=== PATIENT | female | born 1990 ===

== ENCOUNTER 2017-04-04 12:17 | Emergency (ER) | payer BC ==
[2017-04-04] MEDS ORDERED: Sodium Chloride 0.9% 10 ML Syringe FLUSH PRN (12:43)
[2017-04-04] MEDS ORDERED: Ondansetron 4 MG/2 ML SDV IVPUSH ONE (12:43)
[2017-04-04] MEDS ORDERED: HYDROmorphone 2 MG/ML Syringe IVPUSH ONE (12:43)
[2017-04-04] MEDS ORDERED: Sodium Chloride 0.9% 1,000 ML IV ONE (12:43)
[2017-04-04] MEDS ORDERED: Sodium Chloride 0.9% 2.5 ML Syringe FLUSH PRN (12:43)
--- NOTE | 2017-04-04 12:45 | EDM.PDOC ---
ED HPI GENERAL MEDICAL PROBLEM - General Chief Complaint: ENT Problem Stated Complaint: TOOTH PAIN Time Seen by Provider: 04/04/17 12:24 - History of Present Illness INITIAL COMMENTS - FREE TEXT/NARRATIVE: HISTORY AND PHYSICAL: History of present illness: The patient is a 27-year-old female with a history of sinusitis in the past presents after she underwent wisdom tooth removal x4 on March [address] Wyatt. Patient states she was told by the maxillofacial surgeon that the 2 wisdom teeth on the right side were very deep and the bottom was close to the nerve and the top one was very close to the sinus wall. He informed her that that side would take longer to heal. She was placed on antibiotics for home for one week and followed up with him in one week for postop check and was told that everything was healing well. The patient states she felt fine until yesterday when she started having pain on the upper right maxillary area near the wisdom tooth extraction site. She had a bad taste in her mouth but did not have a sore throat and had a low-grade fever. She states her temperature was 99. She had no actual vomiting no abdominal pain no headache no cough and no sinus drainage at that time. Patient says that she took [id number] pain medication and tried to call the maxillofacial surgeon as well as a variety of dentists for advice on what to do. Patient says that in the middle of the night she felt like her nose was congested so she blew her nose and felt a popping- like sensation near her right sinus area and noted that copious yellow drainage came out near the wisdom tooth extraction site. Patient says she has had this persistent discomfort in the same area and has not had a lot of nasal drainage since that one episode. As her pain is localized to the extraction site as well as in that maxillary area. As no visual changes and has had no fever today. She has been able to drink a Sprite but otherwise has no appetite due to the bad taste in her mouth and the nausea. The patient states she was able to contact today on his cell phone as he is out of town. He told her that is likely not related to her dental extraction. Review of systems: As per history of present illness and below otherwise all systems reviewed and negative. Past medical history: As per history of present illness and as reviewed below otherwise noncontributory. Surgical history: As per history of present illness and as reviewed below otherwise noncontributory. Social history: No reported history of drug or alcohol abuse. Family history: As per history of present illness and as reviewed below otherwise noncontributory. Physical exam: General: Well-developed well-nourished female was nontoxic and speaks clearly and easily in ED. She intermittent he spits, she states because of the bad taste in her mouth. Her vital signs have been noted by me and are stable and she is afebrile HEENT: Atraumatic, normocephalic, pupils reactive, negative for conjunctival pallor or scleral icterus, mucous membranes moist, throat clear, neck supple, nontender, trachea midline. There is no cervical adenopathy and no nuchal rigidity and no visible soft tissue swelling of the face. There is no discrete sinus tenderness and there is no crepitus of the face. There are no palpable bony deformities or fullness appreciated in palpating the facial architecture. The extraction sites on the left upper and left lower wisdom teeth area are clean and well healed. The right lower extraction site is healing but still has a small open area but there is no debris bleeding or gum swelling or tenderness. The right upper extraction site is very difficult to visually access do to its very close proximity to the end of her maxilla and the last molar; there is no gross gum swelling on palpation and there is irregularity in the gum architecture and tenderness but there is no fluctuance or drainage appreciated. Lungs: Clear to auscultation, breath sounds equal bilaterally, chest nontender. Heart: S1S2, regular, negative for clicks, rubs, or JVD. Abdomen: Soft, nondistended, nontender. NABS. Genitourinary: Deferred. Rectal: Deferred. Extremities: Atraumatic, negative for cords or calf pain. Neurovascular unremarkable. Neuro: Awake, alert, oriented. Cranial nerves II through XII unremarkable. Cerebellum unremarkable. Motor and sensory unremarkable throughout. Exam nonfocal. Diagnostics: CBC CMP lactic acid CT scan of the sinuses urine Therapeutics: IV fluids Zofran clindamycin Rocephin norco 1502: CT scanning case was discussed with our ENT physician Dr. Berry. She recommends broad coverage for antibiotics, oral rinses and followup with the oral surgeon. I discussed all testing results with the patient and at bedside and will give her a dose of clindamycin and Rocephin here as well as Spencer and will give her Augmentin and clindamycin for home. The patient received chlorhexidine oral rinses after her surgery and I will renew that prescription as well. Advised on reasons to return to the ED and the need to contact the oral surgeon and followup with him next week. Patient states understanding Impression: Right maxillary sinusitis with a posterior inferior right maxillary wall defect secondary to wisdom tooth extraction stable Definitive disposition and diagnosis as appropriate pending reevaluation and review of above. tooth Pain Score (Numeric/FACES): 5 - Related Data Allergies Allergy/AdvReac Type Severity Reaction Status Date / Time No Known Allergies Allergy Verified 04/04/17 12:33 Past Medical History - Past Health History Medical/Surgical History: Denies Medical/Surgical History Social & Family History - Family History Family Medical History: Noncontributory ED ROS GENERAL - Review of Systems Review Of Systems: ROS reveals no pertinent complaints other than HPI. ED EXAM, GENERAL - Physical Exam Exam: See Below (See dictation) Course - Vital Signs Last Recorded V/S: Last Vital Signs Temp 36.1 C 04/04/17 12:33 Pulse 99 04/04/17 12:33 Resp 18 04/04/17 12:33 BP 120/69 04/04/17 12:33 Pulse Ox 100 04/04/17 12:33 - Orders/Labs/Meds Orders: Active Orders 24 hr Category Date Time Status Clindamycin Phosphate [Cleocin] 600 mg Med 04/04/17 15:09 Active Sodium Chloride 0.9% [Normal Saline] 50 ml IV ONETIME Sodium Chloride 0.9% [Saline Flush] Med 04/04/17 12:43 Active 10 ml FLUSH ASDIRECTED PRN Sodium Chloride 0.9% [Saline Flush] Med 04/04/17 12:43 Active 2.5 ml FLUSH ASDIRECTED PRN cefTRIAXone [Rocephin in Dextrose,Iso-Osm 1 GM/50 ML] 1 Med 04/04/17 15:09 Active gm Premix Bag 1 bag IV ONETIME Saline Lock Insert [OM.PC] Stat Oth 04/04/17 12:42 Ordered Medication Orders Clindamycin Phosphate 600 mg/ (Sodium Chloride) 54 mls @ 100 mls/hr IV ONETIME ONE Stop: 04/04/17 15:40 Ceftriaxone Sodium/Dextrose 1 (gm/ Premix) 50 mls @ 100 mls/hr IV ONETIME ONE Stop: 04/04/17 15:38 Sodium Chloride (Saline Flush) 10 ml FLUSH ASDIRECTED PRN PRN Reason: Keep Vein Open Sodium Chloride (Saline Flush) 2.5 ml FLUSH ASDIRECTED PRN PRN Reason: Keep Vein Open Labs: Laboratory Tests 04/04/17 04/04/17 04/04/17 Range/Units 13:00 13:00 13:00 WBC 10.39 (4.0-11.0) K/uL RBC 4.14 L (4.30-5.90) M/uL Hgb 12.6 (12.0-16.0) g/dL Hct 37.0 (36.0-46.0) % MCV 89.4 (80.0-98.0) fL MCH 30.4 (27.0-32.0) pg MCHC 34.1 (31.0-37.0) g/dL RDW Std Deviation 42.1 (28.0-62.0) fl RDW Coeff of Sharda 13 (11.0-15.0) % Plt Count 197 (150-400) K/uL MPV 9.30 (7.40-12.00) fL Neut % (Auto) 74.1 (48.0-80.0) % Lymph % (Auto) 18.8 (16.0-40.0) % Powell % (Auto) 6.4 (0.0-15.0) % Eos % (Auto) 0.5 (0.0-7.0) % Baso % (Auto) 0.2 (0.0-1.5) % Neut # (Auto) 7.7 H (1.4-5.7) K/uL Lymph # (Auto) 2.0 (0.6-2.4) K/uL Powell # (Auto) 0.7 (0.0-0.8) K/uL Eos # (Auto) 0.1 (0.0-0.7) K/uL Baso # (Auto) 0.0 (0.0-0.1) K/uL Nucleated RBC % 0.0 /100WBC Nucleated RBCs # 0 K/uL Lactate 0.8 (0.20-2.00) mmol/L Sodium 138 (136-146) mmol/L Potassium 3.9 (3.5-5.1) mmol/L Chloride 108 (98-110) mmol/L Carbon Dioxide 20 L (21-31) mmol/L BUN 9 (6.0-23.0) mg/dL Creatinine 0.7 (0.6-1.5) mg/dL Est Cr Clr Drug Dosing 110.55 mL/min Estimated GFR (MDRD) > 60.0 ml/min Glucose 83 (60-110) mg/dL Calcium 9.0 (8.8-10.8) mg/dL Total Bilirubin 0.5 (0.1-1.5) mg/dL AST 13 (5-40) IU/L ALT 18 (8-54) IU/L Alkaline Phosphatase 86 (40-150) Total Protein 6.8 (6.0-8.0) g/dL Albumin 3.8 (3.5-5.0) g/dL Globulin 3.0 (2.0-3.5) g/dL Albumin/Globulin Ratio 1.3 (1.3-2.8) Urine HCG, Qual (NEGATIVE) 04/04/17 Range/Units 13:00 WBC (4.0-11.0) K/uL RBC (4.30-5.90) M/uL Hgb (12.0-16.0) g/dL Hct (36.0-46.0) % MCV (80.0-98.0) fL MCH (27.0-32.0) pg MCHC (31.0-37.0) g/dL RDW Std Deviation (28.0-62.0) fl RDW Coeff of Sharda (11.0-15.0) % Plt Count (150-400) K/uL MPV (7.40-12.00) fL Neut % (Auto) (48.0-80.0) % Lymph % (Auto) (16.0-40.0) % Powell % (Auto) (0.0-15.0) % Eos % (Auto) (0.0-7.0) % Baso % (Auto) (0.0-1.5) % Neut # (Auto) (1.4-5.7) K/uL Lymph # (Auto) (0.6-2.4) K/uL Powell # (Auto) (0.0-0.8) K/uL Eos # (Auto) (0.0-0.7) K/uL Baso # (Auto) (0.0-0.1) K/uL Nucleated RBC % /100WBC Nucleated RBCs # K/uL Lactate (0.20-2.00) mmol/L Sodium (136-146) mmol/L Potassium (3.5-5.1) mmol/L Chloride (98-110) mmol/L Carbon Dioxide (21-31) mmol/L BUN (6.0-23.0) mg/dL Creatinine (0.6-1.5) mg/dL Est Cr Clr Drug Dosing mL/min Estimated GFR (MDRD) ml/min Glucose (60-110) mg/dL Calcium (8.8-10.8) mg/dL Total Bilirubin (0.1-1.5) mg/dL AST (5-40) IU/L ALT (8-54) IU/L Alkaline Phosphatase (40-150) Total Protein (6.0-8.0) g/dL Albumin (3.5-5.0) g/dL Globulin (2.0-3.5) g/dL Albumin/Globulin Ratio (1.3-2.8) Urine HCG, Qual NEGATIVE (NEGATIVE) Meds: Medications Generic Name Dose Route Start Last Admin Trade Name Freq PRN Reason Stop Dose Admin Clindamycin Phosphate 600 mg/ 54 mls @ 100 mls/hr 04/04/17 15:09 Sodium Chloride IV 04/04/17 15:40 ONETIME ONE Ceftriaxone Sodium/Dextrose 1 50 mls @ 100 mls/hr 04/04/17 15:09 gm/ Premix IV 04/04/17 15:38 ONETIME ONE Sodium Chloride 10 ml 04/04/17 12:43 Saline Flush FLUSH ASDIRECTED PRN Keep Vein Open Sodium Chloride 2.5 ml 04/04/17 12:43 Saline Flush FLUSH ASDIRECTED PRN Keep Vein Open Discontinued Medications Generic Name Dose Route Start Last Admin Trade Name Freq PRN Reason Stop Dose Admin Hydromorphone HCl 0.5 mg 04/04/17 12:43 04/04/17 13:40 Dilaudid IVPUSH 05/05/17 12:44 0.5 mg ONETIME ONE Administration Sodium Chloride 1,000 mls @ 999 mls/hr 04/04/17 12:43 04/04/17 13:03 Normal Saline IV 04/04/17 13:43 999 mls/hr STAT ONE Administration Ondansetron HCl 4 mg 04/04/17 12:43 04/04/17 13:10 Zofran IVPUSH 04/04/17 12:44 4 mg ONETIME ONE Administration Departure - Departure Time of Disposition: 15:22 Disposition: Home, Self-Care 01 Condition: good Clinical Impression: Sinusitis, acute maxillary Qualifiers: Recurrence: non-recurrent Qualified Code(s): J01.00 - Acute maxillary sinusitis , unspecified Forms: ED Department Discharge Additional Instructions: The following information is given to patients seen in the emergency department who are being discharged to home. This information is to outline your options for follow-up care. We provide all patients seen in our emergency department with a follow-up referral. The need for follow-up, as well as the timing and circumstances, are variable depending upon the specifics of your emergency department visit. If you don't have a primary care physician on staff, we will provide you with a referral. We always advise you to contact your personal physician following an emergency department visit to inform them of the circumstance of the visit and for follow-up with them and/or the need for any referrals to a consulting specialist. The emergency department will also refer you to a specialist when appropriate. This referral assures that you have the opportunity for followup care with a specialist. All of these measure are taken in an effort to provide you with optimal care, which includes your followup. Under all circumstances we always encourage you to contact your private physician who remains a resource for coordinating your care. When calling for followup care, please make the office aware that this follow-up is from your recent emergency room visit. If for any reason you are refused follow-up, please contact the [facility] emergency department at and ask to speak to the emergency department charge nurse. [facility] Primary care- Internal Medicine and Family [address] [address] [facility] Specialty Care - ENT [address] [place] [address] Please use all medications as prescribed and only take the Spencer when you're home. Please do the oral rinses as directed after each male as well as at that time. Please call and followup with your oral surgeon as we discussed next week and return to ER as needed and as discussed. - My Orders Last 24 Hours: My Active Orders 04/04/17 12:42 Saline Lock Insert [OM.PC] Stat 04/04/17 12:43 Sodium Chloride 0.9% [Saline Flush] 10 ml FLUSH ASDIRECTED PRN Sodium Chloride 0.9% [Saline Flush] 2.5 ml FLUSH ASDIRECTED PRN 04/04/17 15:09 Clindamycin Phosphate [Cleocin] 600 mg Sodium Chloride 0.9% [Normal Saline] 50 ml IV ONETIME cefTRIAXone [Rocephin in Dextrose,Iso-Osm 1 GM/50 ML] 1 gm Premix Bag 1 bag IV ONETIME - Assessment/Plan Last 24 Hours: My Active Orders 04/04/17 12:42 Saline Lock Insert [OM.PC] Stat 04/04/17 12:43 Sodium Chloride 0.9% [Saline Flush] 10 ml FLUSH ASDIRECTED PRN Sodium Chloride 0.9% [Saline Flush] 2.5 ml FLUSH ASDIRECTED PRN 04/04/17 15:09 Clindamycin Phosphate [Cleocin] 600 mg Sodium Chloride 0.9% [Normal Saline] 50 ml IV ONETIME cefTRIAXone [Rocephin in Dextrose,Iso-Osm 1 GM/50 ML] 1 gm Premix Bag 1 bag IV ONETIME
[2017-04-04 13:45] LABS: CHLORIDE,CL 108 mmol/L (98-110); SODIUM,NA 138 mmol/L (136-146)
--- NOTE | 2017-04-04 14:30 | CT ---
EXAMINATION: CT paranasal sinuses HISTORY: Pain COMPARISON: None TECHNIQUE: Axial CT images obtained through the paranasal sinuses without contrast. Coronal and sagi ttal reconstructions obtained. FINDINGS: There is an air-fluid level within the right maxillary sinus with mucosal thickening. Ther e is erosion of the posterior wall of the right maxillary sinus posteriorly and inferiorly. There is a similar appearance to the maxillary wall on the left, with small adjacent air pockets, likely pos tsurgical secondary to tooth extractions. There is mild rightward deviation of the nasal septum. The sphenoid and left frontal sinuses are patent. There is mucosal thickening of the right frontoethmoi chas recess. The right ostium made of complex is obstructed. The temporomandibular joints appear symm etric. The mastoid air cells and middle ears are clear. The orbits and globes are symmetric. The orb its and globes appear symmetric. IMPRESSION: 1. Air-fluid level and mucosal thickening within the right maxillary sinus, likely representing acut e sinusitis. There is a defect along the posterior inferior right maxillary wall, adjacent to the re cent wisdom tooth extraction site.
[2017-04-04] MEDS ORDERED: cefTRIAXone 1 GM in Premix Bag 1 BAG IV ONE (15:09)
[2017-04-04] MEDS ORDERED: Clindamycin Phosphate in D5W 600 MG in Premix Bag 1 BAG IV ONE ×2 (16:00)
[2017-04-04 16:32] VITALS: BP 118/66
== END 2017-04-04 17:00 | disposition home or self-care (01) ==
LOC: MW.ED 12:17
DX: J01.00 Acute maxillary sinusitis, unspecified (principal)
CPT/HCPCS: 70486; 80053; 81025; 83605; 85025; 96361; 96365; 96367; 96375; 99284; J0696; J1170; J2405; J7040